=== PATIENT | female | born 1980 | race Two or more races ===

== ENCOUNTER 2021-03-25 07:24 | Inpatient (IN) | payer BC ==
[2021-03-22 14:49] LABS: Urine WBC None Seen /hpf (0 - 5)
[2021-03-22 14:58] LABS: Basophils # (auto) 0.1 10 ^3/uL (0-0.2); Basophils % (auto) 0.7 % (0.0-2.0); Eosinophils # (auto) 0.2 10 ^3/uL (0-0.8); Eosinophils % (auto) 2.9 % (0.0-7.0); Hematocrit 42.4 % (36.0-46.0); Hemoglobin 14.4 g/dL (12.2-16.2); Lymphocytes # (auto) 2.8 10 ^3/uL (0.4-5.4); Lymphocytes % (auto) 32.9 % (10.0-50.0); Mean Corpuscular Hemoglobin 30.3 pg (28.0-32.0); Monocytes # (auto) 0.4 10 ^3/uL (0-1.3); Monocytes % (auto) 4.8 % (0.0-12.0); Neutrophils # (auto) 4.9 10 ^3/uL (1.6-8.6); Neutrophils % (auto) 58.7 % (37.0-80.0); Nucleated Red Blood Cells % 0.1 %; Platelet Count (auto) 307 10^3/uL (140-450); Red Blood Cells 4.77 10^6/uL (4.0-5.20); Red Cell Distribution Width 12.8 % (11.8-14.3); White Blood Cell 8.4 10^3/uL (4.4-10.8)
[2021-03-22 15:10] LABS: INR 0.95 (0.9-1.15); Partial Thromboplastin Time 27.5 sec (23.0-31.2)
[2021-03-22 15:30] LABS: Albumin 4.1 g/dL (3.4-5.0); Calcium 8.9 mg/dL (8.5-10.1); Potassium 4.4 mmol/L (3.5-5.1); Urine Bacteria NONE SEEN /hpf (None Seen); Urine Blood TRACE /uL (Negative)
[2021-03-22 15:34] LABS: BUN/Creatinine Ratio 14.7; Bilirubin, Total 0.3 mg/dL (0.2-1.0); Total Protein 7.9 g/dL (6.4-8.2)
[~2021-03-25] VITALS: Ht 162.6 cm; Wt 98.2 kg
[~2021-03-25 07:24] MED LIST: AMLO-489 PO; ATOR20TA50 PO; BIOT5TAB3 PO; CITA10SO6 PO; CYAN1TAB14 PO; ERGO2000 PO; FERR1TAB36 PO; INSLISPI SC; LEVO150T10 PO; LISI20TA28 PO; MULT1TAB62 PO
[2021-03-25] MEDS ORDERED: ceFAZolin 1GM/50ML 100 ML IV ONE (07:45)
[2021-03-25] MEDS ORDERED: ACETAMINOPHEN 500 MG TAB PO PRN (08:15)
[2021-03-25] MEDS ORDERED: NITROGLYCERIN 0.4 MG SL TAB SL PRN (08:15)
[2021-03-25] MEDS ORDERED: ceFAZolin 1GM/50ML 50 ML IV ONE (08:15)
[2021-03-25] MEDS ORDERED: DEXTROSE (50%) 50ML SYRG IV PRN (08:15)
[2021-03-25] MEDS ORDERED: fentaNYL CITRATE 100 MCG/2 ML VL ONE (08:17)
[2021-03-25] MEDS ORDERED: MIDAZOLAM HCL 1MG/1ML-2 ML VIAL ONE (08:17)
[2021-03-25] MEDS ORDERED: HYDROmorphone HCL 2 MG/ML VL ONE (08:17)
[2021-03-25] MEDS ORDERED: LIDOCAINE 2% (LOCAL ANESTH.) PF 5ml SDV ONE (08:18)
[2021-03-25] MEDS ORDERED: DexAMETHasone SOD PHOS 10MG/1ML VIAL INJ ONE (08:18)
[2021-03-25] MEDS ORDERED: ONDANSETRON HCL 4 MG/2 ML VIAL ONE (08:18)
[2021-03-25] MEDS ORDERED: ROCURONIUM 10MG/ML 10ML VIAL IV ONE (08:18)
[2021-03-25] MEDS ORDERED: KETOROLAC TROMETH 30 MG/ML 1ML VIAL ONE (08:18)
[2021-03-25] MEDS ORDERED: GLYCOPYRROLATE 0.2 MG/ML 1ML VIAL ONE ×2 (08:18→10:34)
[2021-03-25] MEDS ORDERED: METHYLENE BLUE 0.5% 5MG/ML 10ml AMP IV ONE (08:19)
[2021-03-25] MEDS ORDERED: FAMOTIDINE (10MG/ML) 2ML VL IV ONE (08:40)
[2021-03-25] MEDS ORDERED: SUCCINYLCHOLINE CHLORIDE 20 MG/ML 10ML VIAL IV ONE (08:45)
[2021-03-25] MEDS ORDERED: ePHEDrine SULFATE 50 MG/ML AMP IV ONE (08:45)
[2021-03-25] MEDS: LISINOPRIL 20 MG TAB PO SCH (10:00)
[2021-03-25] MEDS ORDERED: NEOSTIGMINE 1 MG/ML INJ (10mg/10ML VIAL) ONE (10:34)
[2021-03-25] MEDS: BUPIVACAINE 0.25% INJ 50ML VIAL ONE ×2 (11:00→13:57)
[2021-03-25] MEDS: LIDOCAINE W/ EPINEPHRINE 1% 20ML VIAL ONE ×2 (11:00→13:57)
[2021-03-25] MEDS ORDERED: NEOMYCIN-BACITRACIN-POLYM 15GM TOP OINT TOP ONE (11:03)
[2021-03-25] MEDS ORDERED: ACCU-CHEK COMFORT CURVE STRIP VI ONE (11:30)
[2021-03-25] MEDS ORDERED: ONDANSETRON HCL 4 MG/2 ML VIAL IV PRN (11:30)
[2021-03-25] MEDS ORDERED: ACCU-CHEK COMFORT CURVE STRIP VI SCH (11:30)
[2021-03-25] MEDS: HYDROmorphone HCL 2 MG/ML VL IV PRN ×4 (11:30→12:00)
[2021-03-25] MEDS: MORPHINE SULFATE 4 MG/ML SYR/VIAL IV PRN ×3 (12:59→23:30)
[2021-03-25 13:00] VITALS: BP 143/75
[2021-03-25] MEDS ORDERED: cloNIDine HCL 0.1 MG TAB PO PRN (13:00)
[2021-03-25] MEDS ORDERED: amLODIPine BESYLATE 5 MG TAB PO ONE (13:00)
[2021-03-25] MEDS: SODIUM CHLORIDE 0.9% 1,000 ML IV SCH ×3 (13:56→21:38)
[2021-03-25] MEDS: InsuLIN REG 1unit/0.01ml Soln (100units/ml) SC SCH ×2 (13:58→17:00)
[2021-03-25 17:00] VITALS: BP 136/63
[2021-03-25] MEDS: ONDANSETRON HCL 4 MG/2 ML VIAL IV PRN ×2 (17:31→23:29)
[2021-03-25] MEDS: HYDROcodone-ACET 5/325MG TAB PO PRN (20:30)
[2021-03-25] MEDS ORDERED: InsuLIN REG 1unit/0.01ml Soln (100units/ml) SC SCH (22:00)
[2021-03-25 22:06] VITALS: BP 137/71
[2021-03-26 04:25] VITALS: BP 137/76
[2021-03-26] MEDS: MORPHINE SULFATE 4 MG/ML SYR/VIAL IV PRN ×5 (04:57→19:56)
[2021-03-26] MEDS: SODIUM CHLORIDE 0.9% 1,000 ML IV SCH ×2 (04:57→17:21)
[2021-03-26] MEDS: ONDANSETRON HCL 4 MG/2 ML VIAL IV PRN ×2 (04:57→09:19)
[2021-03-26 05:13] LABS: Basophils # (auto) 0 10 ^3/uL (0-0.2); Basophils % (auto) 0.2 % (0.0-2.0); Eosinophils # (auto) 0 10 ^3/uL (0-0.8); Hematocrit 37.9 % (36.0-46.0); Hemoglobin 13.1 g/dL (12.2-16.2); Lymphocytes # (auto) 1.7 10 ^3/uL (0.4-5.4); Lymphocytes % (auto) 11.7 % (10.0-50.0); Mean Corpuscular Hemoglobin 30.8 pg (28.0-32.0); Mean Corpuscular Hgb Conc. 34.6 g/dL (32.0-36.0); Mean Corpuscular Volume 89.1 fL (80.0-100.0); Monocytes # (auto) 0.9 10 ^3/uL (0-1.3); Monocytes % (auto) 6.5 % (0.0-12.0); Neutrophils # (auto) 11.6 10 ^3/uL (1.6-8.6); Neutrophils % (auto) 81.6 % (37.0-80.0); Platelet Count (auto) 266 10^3/uL (140-450); Red Blood Cells 4.26 10^6/uL (4.0-5.20); Red Cell Distribution Width 12.6 % (11.8-14.3); White Blood Cell 14.3 10^3/uL (4.4-10.8)
[2021-03-26 05:32] LABS: BUN/Creatinine Ratio 13.2; Calcium 8.2 mg/dL (8.5-10.1); Potassium 4.1 mmol/L (3.5-5.1)
[2021-03-26] MEDS: InsuLIN REG 1unit/0.01ml Soln (100units/ml) SC SCH ×3 (06:03→17:00)
[2021-03-26] MEDS: LEVOTHYROXINE SODIUM 100 MCG TAB PO SCH (06:03)
[2021-03-26 09:06] VITALS: BP 136/79
[2021-03-26] MEDS: LISINOPRIL 20 MG TAB PO SCH (09:19)
[2021-03-26] MEDS: amLODIPine BESYLATE 5 MG TAB PO SCH (09:19)
[2021-03-26 12:43] VITALS: BP 137/74
[2021-03-26] MEDS: HYDROcodone-ACET 5/325MG TAB PO PRN ×2 (14:56→22:37)
[2021-03-26 16:35] VITALS: BP 130/60
[2021-03-26 20:00] VITALS: BP 136/68
[2021-03-26 22:00] VITALS: BP 136/68
[2021-03-27] MEDS: SODIUM CHLORIDE 0.9% 1,000 ML IV SCH ×2 (00:28→08:33)
[2021-03-27] MEDS: MORPHINE SULFATE 4 MG/ML SYR/VIAL IV PRN ×2 (04:41→09:30)
[2021-03-27 05:00] VITALS: BP 138/77
[2021-03-27] MEDS: InsuLIN REG 1unit/0.01ml Soln (100units/ml) SC SCH ×2 (06:49→11:30)
[2021-03-27] MEDS: LEVOTHYROXINE SODIUM 100 MCG TAB PO SCH (06:49)
[2021-03-27 08:00] VITALS: BP 152/86
[2021-03-27] MEDS: HYDROcodone-ACET 5/325MG TAB PO PRN (08:32)
[2021-03-27 09:00] VITALS: BP 152/86
[2021-03-27] MEDS: amLODIPine BESYLATE 5 MG TAB PO SCH (09:28)
[2021-03-27] MEDS: LISINOPRIL 20 MG TAB PO SCH (09:28)
[2021-03-27 12:00] VITALS: BP 152/86
[2021-03-27 12:53] VITALS: BP 147/87
== END 2021-03-27 12:50 | disposition home or self-care (01) | DRG 743 ==
LOC: SUR 07:24 → OVERFLOW 08:09 → CENTRAL 13:03
PROVIDERS: ADMIT Obstetrics & Gynecology; ATTEND Internal Medicine
PROC: 0UB70ZZ Excision of Bilateral Fallopian Tubes, Open Approach (ICD-10-PCS; 2021-03-25)
PROC: 8E0W0CZ Robotic Assisted Procedure of Trunk Region, Open Approach (ICD-10-PCS; 2021-03-25)
PROC: 0UT90ZZ Resection of Uterus, Open Approach (ICD-10-PCS; principal; 2021-03-25 08:45)
DX: N85.2 Hypertrophy of uterus (principal); E03.9 Hypothyroidism, unspecified; E11.9 Type 2 diabetes mellitus without complications; E66.9 Obesity, unspecified; I10 Essential (primary) hypertension; N93.8 Other specified abnormal uterine and vaginal bleeding; Z79.4 Long term (current) use of insulin; Z90.711 Acquired absence of uterus with remaining cervical stump
CPT/HCPCS: 36415; 80048; 80053; 81001; 82962; 83036; 84443; 84702; 85025; 85610; 85730; 86850; 86900; 86901; 87086; G0378; J0330; J0690; J1100; J1885; J2001; J2250; J2405; J3490